=== PATIENT | female | born 1950 | race Two or more races ===

== ENCOUNTER 2023-01-26 15:51 | Inpatient (IN) | payer OTHER, MEDICAID ==
[~2023-01-26] VITALS: Ht 170.2 cm; Wt 108.8 kg
[2023-01-26] MEDS ORDERED: ADENOSINE 6 MG/2 ML INJ IV ONE (16:15)
[2023-01-26 16:19] LABS: Basophils # (auto) 0.1 10 ^3/uL (0-0.2); Basophils % (auto) 0.6 % (0.0-2.0); Eosinophils # (auto) 0 10 ^3/uL (0-0.8); Eosinophils % (auto) 0.4 % (0.0-7.0); Hematocrit 38.3 % (36.0-46.0); Hemoglobin 12.5 g/dL (12.2-16.2); Lymphocytes % (auto) 25.6 % (10.0-50.0); Mean Corpuscular Hemoglobin 28.8 pg (28.0-32.0); Mean Corpuscular Hgb Conc. 32.6 g/dL (32.0-36.0); Mean Corpuscular Volume 88.4 fL (80.0-100.0); Monocytes # (auto) 0.8 10 ^3/uL (0-1.3); Monocytes % (auto) 7.1 % (0.0-12.0); Neutrophils # (auto) 7.6 10 ^3/uL (1.6-8.6); Neutrophils % (auto) 66.3 % (37.0-80.0); Nucleated Red Blood Cells % 0.1 %; Red Blood Cells 4.33 10^6/uL (4.0-5.20); Red Cell Distribution Width 13.8 % (11.8-14.3); White Blood Cell 11.5 10^3/uL (4.4-10.8)
[2023-01-26] MEDS ORDERED: dilTIAZem 125mg/125ml BAG KIT 125 ML IV ONE ×2 (16:30→20:30)
[2023-01-26] MEDS ORDERED: dilTIAZem 125 MG/25ML INJ VIAL IV ONE (16:30)
[2023-01-26] MEDS ORDERED: dilTIAZem 25 MG/5 ML VIAL IV ONE ×2 (16:30→17:00)
[2023-01-26 16:42] LABS: Magnesium 1.9 mg/dL (1.6-2.6); Potassium 4.2 mmol/L (3.5-5.1)
[2023-01-26 16:46] LABS: BUN/Creatinine Ratio 18.2 (10.0-20.0); Bilirubin, Total 0.5 mg/dL (0.2-1.0); Total Protein 7.5 g/dL (6.4-8.2)
[2023-01-26] MEDS ORDERED: DIGOXIN 0.25 MG TAB PO ONE (17:00)
[2023-01-26 18:55] LABS: Urine Bacteria NONE SEEN /hpf (None Seen); Urine Blood Negative /uL (Negative); Urine Specific Gravity 1.003 (1.001-1.035); Urine WBC <1 /hpf (0 - 5)
[2023-01-26] MEDS ORDERED: dilTIAZem 125mg/125ml BAG KIT 125 ML IV SCH (20:15)
[2023-01-26] MEDS ORDERED: SODIUM CHLORIDE 0.9% 1,000 ML IV ONE ×2 (20:30)
[2023-01-26] MEDS ORDERED: MORPHINE SULFATE INJ 2 MG/ml SYRG IV PRN (21:15)
[2023-01-26] MEDS ORDERED: DEXTROSE (50%) 50ML SYRG IV PRN (21:15)
[2023-01-26] MEDS ORDERED: ONDANSETRON HCL 4 MG/2 ML VIAL IV PRN (21:15)
[2023-01-26] MEDS ORDERED: NITROGLYCERIN 0.4 MG SL TAB SL PRN (21:15)
[2023-01-26] MEDS ORDERED: ACETAMINOPHEN 325 MG TAB PO PRN (21:15)
[2023-01-26] MEDS: METOPROLOL SUCCINATE XL 50 MG TAB PO SCH (21:28)
[2023-01-26] MEDS: InsuLIN REG 1unit/0.01ml Soln (100units/ml) SC SCH (22:00)
[2023-01-26] MEDS: APIXABAN 5 MG TAB PO SCH (22:26)
[2023-01-26] MEDS: ACCU-CHEK COMFORT CURVE STRIP VI SCH (22:27)
[2023-01-26] MEDS: ATORVASTATIN 20 MG TAB PO SCH (22:27)
[2023-01-27 05:30] LABS: Basophils # (auto) 0.1 10 ^3/uL (0-0.2); Basophils % (auto) 0.5 % (0.0-2.0); Eosinophils # (auto) 0.1 10 ^3/uL (0-0.8); Eosinophils % (auto) 0.6 % (0.0-7.0); Hematocrit 34.5 % (36.0-46.0); Hemoglobin 11.3 g/dL (12.2-16.2); Lymphocytes # (auto) 3.2 10 ^3/uL (0.4-5.4); Lymphocytes % (auto) 27.5 % (10.0-50.0); Mean Corpuscular Hemoglobin 29.2 pg (28.0-32.0); Mean Corpuscular Hgb Conc. 32.9 g/dL (32.0-36.0); Mean Corpuscular Volume 88.8 fL (80.0-100.0); Monocytes # (auto) 0.8 10 ^3/uL (0-1.3); Monocytes % (auto) 7.2 % (0.0-12.0); Neutrophils # (auto) 7.6 10 ^3/uL (1.6-8.6); Neutrophils % (auto) 64.2 % (37.0-80.0); Red Blood Cells 3.88 10^6/uL (4.0-5.20); White Blood Cell 11.7 10^3/uL (4.4-10.8)
[2023-01-27 05:50] LABS: Calcium 8.6 mg/dL (8.5-10.1); Potassium 4.2 mmol/L (3.5-5.1)
[2023-01-27 05:53] LABS: BUN/Creatinine Ratio 19.2 (10.0-20.0)
[2023-01-27] MEDS: InsuLIN REG 1unit/0.01ml Soln (100units/ml) SC SCH ×4 (06:12→21:41)
[2023-01-27] MEDS: ACCU-CHEK COMFORT CURVE STRIP VI SCH ×4 (06:17→21:08)
[2023-01-27] MEDS: APIXABAN 5 MG TAB PO SCH ×2 (09:52→21:08)
[2023-01-27] MEDS: PANTOPRAZOLE 40 MG TAB PO SCH (09:53)
[2023-01-27] MEDS: METOPROLOL SUCCINATE XL 50 MG TAB PO SCH ×2 (09:53→17:52)
[2023-01-27] MEDS ORDERED: LOSARTAN POTASSIUM 50 MG TAB PO SCH (10:00)
[2023-01-27 16:22] VITALS: BP 119/91
[2023-01-27] MEDS ORDERED: LOSA-39 PO (16:35)
[2023-01-27] MEDS ORDERED: ATOR20TA50 PO (16:35)
[2023-01-27] MEDS ORDERED: SITA100T7 PO (16:36)
[2023-01-27] MEDS ORDERED: METO-289 PO (16:36)
[2023-01-27] MEDS ORDERED: GLIM-6 PO (16:36)
[2023-01-27] MEDS ORDERED: [UNRECOGNIZED DRUG - CODE] PO (16:36)
[2023-01-27] MEDS ORDERED: MAGN241.6 PO (16:36)
[2023-01-27 17:17] VITALS: BP 119/91
[2023-01-27] MEDS ORDERED: MULT-927 PO (17:19)
[2023-01-27] MEDS ORDERED: ASPI1TAB20 PO (17:22)
[2023-01-27] MEDS: ATORVASTATIN 20 MG TAB PO SCH (21:08)
[2023-01-27 22:00] VITALS: BP 140/51
[2023-01-28 05:00] VITALS: BP 153/56
[2023-01-28] MEDS: ACCU-CHEK COMFORT CURVE STRIP VI SCH (06:22)
[2023-01-28] MEDS: InsuLIN REG 1unit/0.01ml Soln (100units/ml) SC SCH (06:25)
[2023-01-28 08:15] VITALS: BP 139/48
[2023-01-28 09:00] VITALS: BP 139/79
[2023-01-28] MEDS ORDERED: METO-6 PO (09:41)
[2023-01-28] MEDS ORDERED: APIX5TAB PO (09:41)
[2023-01-28] MEDS ORDERED: LOSA-69 PO (09:41)
[2023-01-28] MEDS: PANTOPRAZOLE 40 MG TAB PO SCH (09:50)
[2023-01-28] MEDS: APIXABAN 5 MG TAB PO SCH (09:50)
[2023-01-28] MEDS: METOPROLOL SUCCINATE XL 50 MG TAB PO SCH (09:51)
[2023-01-28 10:20] VITALS: BP 139/48
== END 2023-01-28 11:41 | disposition home or self-care (01) | DRG 310 ==
LOC: ER 15:51 → TELE-CENTR 16:04 → TELE 21:15 → TELE-CENTR 01-27 16:02
PROVIDERS: ADMIT Nurse Practitioner; ATTEND Internal Medicine Geriatric Medicine
DX: I48.91 Unspecified atrial fibrillation (principal); E11.22 Type 2 diabetes mellitus with diabetic chronic kidney disease; E66.9 Obesity, unspecified; E78.5 Hyperlipidemia, unspecified; I48.92 Unspecified atrial flutter; I12.9 Hypertensive chronic kidney disease with stage 1 through stage 4 chronic kidney disease, or unspecified chronic kidney disease; N18.9 Chronic kidney disease, unspecified; Z90.710 Acquired absence of both cervix and uterus; Z79.01 Long term (current) use of anticoagulants; Z79.82 Long term (current) use of aspirin; Z79.899 Other long term (current) drug therapy; Z68.37 Body mass index [BMI] 37.0-37.9, adult
CPT/HCPCS: 36415; 71045; 80048; 80053; 81001; 82962; 83735; 83880; 84443; 84484; 85025; 93005; 93306; 96365; 99291; G0378; J0153; J1815